=== PATIENT | male | born 1950 | race Caucasian/White ===

== ENCOUNTER 2019-10-18 21:31 | Observation (INO) | payer MEDICARE, MEDICAID, SELFPAY ==
[2019-10-18 21:33] VITALS: BP 162/128; PULSE 114; RESP 20; TEMP 36.9; O2SAT 97; BMI 33.6
--- NOTE | 2019-10-18 21:34 | ED_ITS ---
Entered by Nia Flores, acting as scribe for HPI - Abdominal Pain General: Chief Complaint: Abdominal Pain Stated Complaint: N/V/D Time Seen by Provider: 10/18/19 21:38 Source: EMS Mode of arrival: EMS Limitations: no limitations History of Present Illness: HPI narrative: 69 yo male presents with abdomen pain. pt states this started yesterday. pt has had nausea and vomiting. pt states nothing makes this better or worse. MD elicited complaint: abdominal pain Onset (ago): day(s) (yesterday ) Pain Consistency: constant Location: RLQ Severity: moderate Quality: cramping Exacerbating factors: vomiting Relieving factors: nothing Associated Symptoms: Reports nausea and vomiting; Denies chills and fever(s) Review of Systems Const: Denies: fever or chills Eyes: Denies: change in vision ENMT: Denies: throat pain or mouth pain Card: Denies: chest pain Resp: Denies: shortness of breath GI: Reports: abdominal pain, nausea and vomiting Musc: Denies: back pain or joint pain Skin/Breast: Denies: rash Neuro: Denies: headache or behavioral changes Psych: Denies: depression Endo: Denies: excessive urination Keaton/Lymph: Denies: easy bruising All/Imm: Denies: hives PFSH ED PFSH: Statuses (acute, chronic, etc) shown below reflect problem list status as previously entered and may not be historically accurate Social History Smoking and tobacco status: former smoker Physical Exam Const: COMMON NORMALS: no apparent distress and healthy appearing HENMT: COMMON NORMALS: normocephalic and external nose normal HEAD & SCALP: normocephalic NOSE: external nose normal and no nasal discharge (nasal dischage) Eye: COMMON NORMALS: PERRL PUPIL: Yes PERRL Neck/C-Spine: COMMON NORMALS: full ROM and no lymphadenopathy Chest: COMMONS NORMALS: inspection of chest normal Resp: COMMON NORMALS: normal respiratory effort and clear to auscultation bilaterally AUSCULTATION: clear to auscultation bilaterally Cardio: COMMON NORMALS: regular rate and regular rhythm RATE: regular rate RHYTHM: regular rhythm GI: COMMON NORMALS: soft to palpation; negative for non-tender (diffuse tenderness on exam) PALPATION: Yes soft Extremity: COMMON NORMALS: normal to inspection, full ROM and normal capillary refill Psych: COMMON NORMALS: mental status grossly normal and cooperative Skin: COMMON NORMALS: no rashes or lesions noted GENERAL SKIN EXAM: no rashes or lesions noted Procedures Intubation Mg Given: 20 Mg Given: 200 Course Vital Signs: Vital signs: Vital Signs Temperature 98.4 F 10/18/19 21:33 Pulse Rate 121 H 10/19/19 02:09 Respiratory Rate 20 H 10/19/19 02:09 Blood Pressure 112/82 10/19/19 02:09 Pulse Oximetry 98 10/19/19 02:09 MDM - Abdominal Pain MDM Narrative: Medical decision making narrative: Patient presents with vomiting that have slight blood in his vomitus. Patient's dehydrated well from his vomiting. Patient has no signs of major GI bleed as his hemoglobin is normal. Patient feels improved here after Zofran. I spoke to hospitalist will admit for further evaluation and IV fluids. Lab Data: Labs: Lab Results 10/18/19 10/18/19 10/19/19 Range/Units 21:50 22:38 00:00 WBC 13.6 H (4.0-10.0) 10^3/ uL RBC 6.10 H (4.1-5.3) 10^6/u L Hgb 18.8 H (11.7-16.6) g/dL Hct 55.0 H (42.0-52.0) % MCV 90.2 (80-94) fL MCH 30.8 (28.0-34.0) pg MCHC 34.2 (30.0-36.0) g/dL RDW 11.4 L (12.1-15.1) % Plt Count 426 H (130-400) 10^3/c mm MPV 8.6 (7.4-10.4) fL Neut % (Auto) 83.9 % Lymph % (Auto) 8.4 % Whitfield % (Auto) 6.0 % Eos % (Auto) 0.7 % Baso % (Auto) 0.6 % Neut # (Auto) 11.4 H (1.8-7.7) 10^3/u L Lymph # (Auto) 1.2 (0.8-4.8) 10^3/u L Whitfield # (Auto) 0.8 (0.2-0.9) 10^3/u L Eos # (Auto) 0.1 (0.0-0.8) 10^3/u L Baso # (Auto) 0.1 (0.0-0.1) 10^3/u L Nucleated RBC % (a uto) 0 % Nucleated RBCs # 0.0 /100WBC Sodium 136 (136-145) mmol/L Potassium 4.4 (3.5-5.1) mmol/L Chloride 95 L (98-107) mmol/L Carbon Dioxide 16 L (22-29) mmol/L Anion Gap 29.4 H (5-19) BUN 26 H (8-23) mg/dL Creatinine 2.3 H (0.7-1.2) mg/dL GFR Calculation 28.4 L (90-130) mL/min Glucose 117 H (74-106) mg/dL Lactate 1.9 (0.5-2.2) mmol/L Calcium 10.2 (8.8-10.2) mg/Dl Total Bilirubin 0.2 (0.15-1.2) mg/dL AST 23 (0-40) U/L ALT 14 (0-41) U/L Alkaline Phosphata se 70 (40-130) IU/L Total Protein 8.3 (6.6-8.7) g/dL Albumin 5.0 (3.5-5.2) g/dL Globulin 3.3 (1.3-4.6) g/dL Lipase 12 L (13-60) U/L Urine Color (Yellow) Urine Appearance (CLEAR) Urine pH (5-7) Ur Specific Gravit y (1.005-1.030) Urine Protein (Negative) Urine Glucose (UA) (Normal) Urine Ketones (Negative) Urine Occult Blood (Negative) Urine Nitrate (Negative) Urine Bilirubin (NEGATIVE) Urine Urobilinogen (Negative) mg/dL Ur Leukocyte Jody ase (Negative) Urine RBC (0-2) /hpf Urine WBC (0-5) /hpf Ur Squamous Epith Cells (0-5) Ur Renal Epithelia l Cell /hpf Urine Bacteria (NONE) 10/19/19 Range/Units 00:07 WBC (4.0-10.0) 10^3/ uL RBC (4.1-5.3) 10^6/u L Hgb (11.7-16.6) g/dL Hct (42.0-52.0) % MCV (80-94) fL MCH (28.0-34.0) pg MCHC (30.0-36.0) g/dL RDW (12.1-15.1) % Plt Count (130-400) 10^3/c mm MPV (7.4-10.4) fL Neut % (Auto) % Lymph % (Auto) % Whitfield % (Auto) % Eos % (Auto) % Baso % (Auto) % Neut # (Auto) (1.8-7.7) 10^3/u L Lymph # (Auto) (0.8-4.8) 10^3/u L Whitfield # (Auto) (0.2-0.9) 10^3/u L Eos # (Auto) (0.0-0.8) 10^3/u L Baso # (Auto) (0.0-0.1) 10^3/u L Nucleated RBC % (a uto) % Nucleated RBCs # /100WBC Sodium (136-145) mmol/L Potassium (3.5-5.1) mmol/L Chloride (98-107) mmol/L Carbon Dioxide (22-29) mmol/L Anion Gap (5-19) BUN (8-23) mg/dL Creatinine (0.7-1.2) mg/dL GFR Calculation (90-130) mL/min Glucose (74-106) mg/dL Lactate (0.5-2.2) mmol/L Calcium (8.8-10.2) mg/Dl Total Bilirubin (0.15-1.2) mg/dL AST (0-40) U/L ALT (0-41) U/L Alkaline Phosphata se (40-130) IU/L Total Protein (6.6-8.7) g/dL Albumin (3.5-5.2) g/dL Globulin (1.3-4.6) g/dL Lipase (13-60) U/L Urine Color Yellow (Yellow) Urine Appearance Hazy A (CLEAR) Urine pH 5 (5-7) Ur Specific Gravit y 1.020 (1.005-1.030) Urine Protein Neg (Negative) Urine Glucose (UA) Norm (Normal) Urine Ketones 1+ H (Negative) Urine Occult Blood Neg (Negative) Urine Nitrate Negative (Negative) Urine Bilirubin Neg (NEGATIVE) Urine Urobilinogen Norm (Negative) mg/dL Ur Leukocyte Jody ase Trace H (Negative) Urine RBC 0-4 H (0-2) /hpf Urine WBC 55-80 H (0-5) /hpf Ur Squamous Epith Cells 0-4 H (0-5) Ur Renal Epithelia l Cell 5 /hpf Urine Bacteria 4+ H (NONE) Imaging Data ^: CT Abd/Pel: Radiologist's impression: PROCEDURE INFORMATION: Exam: CT Abdomen And Pelvis Without Contrast Exam date and time: 10/18/2019 10:19 PM Age: 69 years old Clinical indication: Nausea and vomiting; Abdominal pain; Acute; Patient HX: Abd pain with n/v/d x 2 days TECHNIQUE: Imaging protocol: Computed tomography of the abdomen and pelvis without contrast. Total DLP: 974.24 mGy-cm Radiation optimization: All CT scans at this facility use at least one of these dose optimization techniques: automated exposure control; mA and/or kV adjustment per patient size (includes targeted exams where dose is matched to clinical indication); or iterative reconstruction. COMPARISON: CT abdomen pelvis w con* [id number] 08/23/2016 10:04 AM FINDINGS: Lungs: Calcified granuloma in the left lower lobe as before. Liver: Unremarkable liver. Gallbladder and bile ducts: No calcified stones. No ductal dilation. Pancreas: Unremarkable. No ductal dilation. Spleen: Still no splenomegaly. Adrenals: Possible interval minimal decrease in size of the 2.5 x 2.2 cm left adrenal mass containing a new small calcification and having anterior density of 5 HU and posterior density of 70 HU. Still no right adrenal mass. Kidneys and ureters: Kidneys still unremarkable. Stomach and bowel: Continued presence of probably 2 duodenal diverticula. Still no obstruction. Continued slight left colonic diverticula. Appendix: Still no appendicitis. Intraperitoneal space: Still no free air. Vasculature: Continued atherosclerosis. Still no aortic aneurysm. Lymph nodes: No change in the small calcified nodes in each side of the pelvis. No interval enlarged nodes. Bladder: No current suggestion of bladder wall thickening. No stones. Reproductive: Continued calcifications in the non-enlarged prostate. Bones/joints: Multiple healed rib fractures bilaterally and nonunion of the old right 12th rib fracture as before. Healed fracture of the left L3 transverse process and old compression fractures still present. Minimal degenerative disease of a few discs again evident. Soft tissues: Continued calcifications in the subcutaneous fat laterally in each hip region, greater on the right. CT/CT abdomen pelvis wo con [id number] IMPRESSION: 1. No acute findings. Possible interval minimal decrease in size of the heterogeneous left adrenal mass questionably representing an adenoma or myelolipoma. 2. Continued presence of probably 2 duodenal diverticula. No current suggestion of bladder wall thickening. Old bone abnormalities and other findings detailed above. Discharge Plan Discharge Patient Disposition: Admitted As Inpatient Admit Provider: Erika Anderson Clinical Impression: Vomiting, Abdominal pain, Acute dehydration Condition: Stable Interventions: ED Discharge Assessment Last Done: 10/19/19 02:22 Coding Level of Care Code ED Rubberizing Mechanic for Chg Fwd Exam Problem Focused The documentation recorded by the Mark wilson Bridget Annette, accurately reflects the service I personally performed and the decisions made by me, Jonelle Buckner MD
[2019-10-18 21:47] VITALS: BP 162/128; PULSE 115; RESP 17; O2SAT 95
[2019-10-18 21:55] VITALS: RESP 16
[2019-10-18] MEDS: ondansetron 2 mg/ML SDV 2 mL 4 MG IVP ×2 (21:55→23:52)
[2019-10-18] MEDS: morphine 4 mg/mL SDV 1 mL IVP (21:55)
[2019-10-18] MEDS: sodium chloride 0.9% 1,000 ML 999 ML IV (21:59)
[2019-10-18 22:11] LABS: Basophils # 0.1 10^3/uL (0.0-0.1); Basophils % 0.6 %; Eosinophils # 0.1 10^3/uL (0.0-0.8); Eosinophils % 0.7 %; Hemoglobin 18.8 g/dL (11.7-16.6); Lymphocytes # 1.2 10^3/uL (0.8-4.8); Lymphocytes % 8.4 %; Mean Corpuscular HGB Conc 34.2 g/dL (30.0-36.0); Mean Corpuscular Hemoglobin 30.8 pg (28.0-34.0); Mean Corpuscular Volume 90.2 fL (80-94); Mean Platelet Volume 8.6 fL (7.4-10.4); Monocytes # 0.8 10^3/uL (0.2-0.9); Neutrophils # 11.4 10^3/uL (1.8-7.7); Neutrophils % 83.9 %; Nucleated Red Blood Cells % 0 %; Platelet Count 426 10^3/cmm (130-400); Red Cell Distribution Width 11.4 % (12.1-15.1); White Blood Count 13.6 10^3/uL (4.0-10.0)
[2019-10-18 22:44] VITALS: BP 148/92; PULSE 98; RESP 19; O2SAT 95
[2019-10-18 23:13] LABS: Alanine Aminotransferase 14 U/L (0-41); Alkaline Phosphatase 70 IU/L (40-130); Anion Gap 29.4 (5-19); Aspartate Amino Transferase 23 U/L (0-40); Blood Urea Nitrogen 26 mg/dL (8-23); Calcium 10.2 mg/Dl (8.8-10.2); Carbon Dioxide 16 mmol/L (22-29); Chloride 95 mmol/L (98-107); Globulin 3.3 g/dL (1.3-4.6); Glomerular Filtration Rate 28.4 mL/min (90-130); Glucose 117 mg/dL (74-106); Lipase 12 U/L (13-60); Potassium 4.4 mmol/L (3.5-5.1); Sodium 136 mmol/L (136-145); Total Bilirubin 0.2 mg/dL (0.15-1.2); Total Protein 8.3 g/dL (6.6-8.7)
[2019-10-18 23:27] VITALS: BP 161/119; PULSE 101; RESP 20; O2SAT 96
--- NOTE | 2019-10-18 23:28 | PC.NURSE ---
patient complaining of right upper quadrant pain. patient states that this pain is a 10/10 pain. ed physician notified
--- NOTE | 2019-10-18 23:47 | PC.NURSE ---
Per office technology instructor that patient had coffee ground emesis X2 in CT. ed physician notified.
[2019-10-18 23:53] VITALS: RESP 16; O2SAT 98
[2019-10-18] MEDS: HYDROmorphone 1 mg/mL INJ 1 mL IVP (23:53)
[2019-10-19] VITALS (14 sets, daily range): BP systolic 107–169; BP diastolic 69–104; PULSE 59–121; RESP 16–22; TEMP 36.4–36.9; O2SAT 94–99
[2019-10-19] MEDS: pantoprazole 40 mg SDV 80 MG IVP (00:13)
[2019-10-19 00:27] LABS: Lactate (Lactic Acid level) 1.9 mmol/L (0.5-2.2)
[2019-10-19 00:28] LABS: Urine Appearance Hazy (CLEAR); Urine Color Yellow (Yellow); pH Urine 5 (5-7)
[2019-10-19 00:29] LABS: Add Urine Microscopic? YES; Bilirubin Urine Neg (NEGATIVE); Blood Urine Neg (Negative); Glucose Urine UA Norm (Normal); Ketones Urine 1+ (Negative); Leukocyte Esterase Urine Trace (Negative); Nitrate Urine Negative (Negative); Protein Urine Neg (Negative); Urobilinogen Urine Norm (Negative)
[2019-10-19 00:36] LABS: Add Urine Culture? Yes; Bacteria Urine 4+; RBC Urine 0-4 /hpf (0-2); Renal Epithelial Cells Urine 5 /hpf; Squamous Epithelial Cell Urine 0-4 (0-5); WBC Urine 55-80 /hpf (0-5)
[2019-10-19] MEDS: pantoprazole 40 MG in sodium chloride 0.9% (plus) 100 ML 20 MG IV (01:13)
[2019-10-19] MEDS: morphine 4 mg/mL SDV 1 mL IVP (01:33)
--- NOTE | 2019-10-19 02:25 | PM.HP ---
Providers/Chief Complaint Admitting Physician: Erika Anderson MD Chief Complaint: N/V/D History of Present Illness Jc Clark is a 69 year old male who carries diagnosis of GERD, drinks beer 6 can every day came in with chief complaint of intractable nausea vomiting. Patient is stating that his symptoms started about 1 month ago with abdominal pain and it gradually got worse to the point he started having nausea and vomiting 48 hours ago, he was not able to keep anything down, it was coffee-ground in color with first vomiting, he also noticed dark-colored stool, he has been having a lot of right upper quadrant pain as well. He has not noticed any fever, chills, constipation he is endorsing diarrhea, dark-colored stool and coffee-ground emesis. He is drinking 6 cans of beer every day, quit smoking few months ago, does not use any recreational drugs, he is using clonidine for his blood pressure and hydrocodone for his back pain. He is taking ranitidine and Zantac for GERD on daily basis. He has also noticed right leg swelling which is chronic for him, he tries to walk when he is feeling better with a cane otherwise leading a sedentary lifestyle Diagnostics in ER showed blood pressure 140, afebrile, patient had 3 coffee-ground emesis in the ER, he was FOBT positive as well, hemoglobin was 18 Protonix bolus 80 mg was given in ER Patient was awake alert oriented and pleasant to communicate Review of Systems Narrative: Abdominal pain, right upper quadrant pain, diarrhea, malaise, Right upper quadrant pain with nausea and vomiting No chest pain No shortness of breath No headache He is endorsing right leg swelling, Denying frequency, urination or dysuria Positive for diarrhea, No skin ulcers or rash Denies depression or anxiety Endorses muscle aches and joint pains Medications/Allergies Allergies Allergy/AdvReac Type Severity Reaction Status Date / Time No Known Allergies Allergy Verified 10/18/19 21:42 PFSH Acute PFSH: Statuses (acute, chronic, etc) shown below reflect problem list status as previously entered and may not be historically accurate Medical History (Updated 10/19/19 @ 03:15 by Erika Anderson MD) Alcohol abuse (Acute) BPH (benign prostatic hyperplasia) (Acute) Degenerative joint disease (Acute) GERD (gastroesophageal reflux disease) (Acute) Hepatomegaly (Acute) Metabolic encephalopathy (Acute) Tobacco abuse (Acute) Surgical History (Updated 10/19/19 @ 02:28 by Erika Anderson MD) H/O neck surgery (Acute) Family History (Updated 10/19/19 @ 02:28 by Erika Anderson MD) Denies family history of CAD (coronary artery disease) Clotting disorder Chronic kidney disease (CKD) Cancer Social History (Updated 10/19/19 @ 03:12 by Erika Anderson MD) Smoking and tobacco status: former smoker Alcohol intake: current Alcohol intake frequency: 3 or more drinks per day Alcohol type: beer Alcohol use comment: 6 cans of beer every day Desire information about alcohol rehabilitation?: No Counseling given: Yes Substance/Drug Use: never Vitals/I&O/Wt Last Vital Signs Temp 98.3 F 10/19/19 02:22 Pulse 99 10/19/19 02:22 Resp 16 10/19/19 02:22 BP 107/80 10/19/19 02:22 Pulse Ox 97 10/19/19 02:22 10/18/19 10/18/19 10/19/19 14:59 22:59 06:59 Intake Total 1000 / 1000 Balance 1000 / 1000 Weight last 48 hrs Weight 86.183 kg Physical Exam Narrative: EXAM NARRATIVE: Obese male, appears stated age, pleasant communicate In mild distress because of dry heaves and retching and abdominal pain Conjunctive are normal, EOMI, PERRLA, Abdomen, distended, tender to palpate on right upper quadrant region, Sandhu sign positive, however abdomen is soft with bowel sounds present S1-S2 no murmur appreciated no JVD no signs of peripheral edema Nonfocal neurological exam no deficit Right leg is swollen 1+ trace edema as compared to the left leg Skin has no rash or bruises Appropriate mood and affect No skin mottling Onychomycosis of toenails A&P Assessment and plan (1) Upper GI bleed: Status: Acute Code(s): K92.2 - Gastrointestinal hemorrhage, unspecified (2) Coffee ground emesis: Status: Acute Code(s): K92.0 - Hematemesis (3) Occult blood positive stool: Status: Acute Code(s): R19.5 - Other fecal abnormalities (4) Dehydration: Status: Acute Code(s): E86.0 - Dehydration (5) Acute kidney injury: Status: Acute Code(s): N17.9 - Acute kidney failure, unspecified (6) Hepatomegaly: Status: Acute Code(s): R16.0 - Hepatomegaly, not elsewhere classified (7) Degenerative joint disease: Status: Acute Code(s): M19.90 - Unspecified osteoarthritis, unspecified site Intractable nausea vomiting most likely due to alcohol induced gastroparesis Patient has history of GERD as well Coffee-ground emesis with FOBT positive stool my differentials would include gastric ulcer bleed versus Sarita-Russell tear N.p.o. Needs EGD Protonix 40 IV twice a day D5 LR at 30 cc/h Hemodynamically stable I do believe current hemoglobin is an artifact due to dehydration, will check CBC at 4 AM Acute kidney injury secondary to dehydration Baseline creatinine has been normal in the past High anion gap metabolic acidosis without alkalosis It is pure metabolic acidosis, patient endorses to rubbing alcohol on his skin He called alcohol 91 We will get serum osmolarity and check osmolar gap He drinks 6 cans of beer every day lactic acid is normal, will check serum ketones Urinary ketones positive Right lower extremity edema Will get venous Doppler to rule out DVT Patient is full code No DVT prophylaxis secondary to coffee-ground emesis SCDs Bedrest Patient lives alone at home Attestations Medical Necessity Statement*: Considering normal hemodynamics and H&H for now I will admit him as observation, evaluate for EGD in the morning anticipate discharge in less than 48 hours Coding Level of Care Code Acute Insulating Machine Operator for Chg Fwd Diagnoses Upper GI bleed K92.2 Coffee ground emesis K92.0 Occult blood positive stool R19.5 Dehydration E86.0 Acute kidney injury N17.9 Hepatomegaly R16.0 Degenerative joint disease M19.90
--- NOTE | 2019-10-19 03:06 | US_ITS ---
WS: [id number] Gallbladder ultrasound, 10/19/2019 Clinical Data: RUQ pain Comparison: Right upper quadrant ultrasound, 08/23/2016. Findings: The gallbladder shows no sludge or stone. The wall measures 1.5 mm with no pericholecystic fluid. The common bile duct is 3.2 mm and there are no intrahepatic ductal abnormalities. Liver shows no cysts, masses or dilated intrahepatic ducts. There is fatty infiltration of the liver. The pancreas is obscured by overlying bowel gas but no cyst, pseudocyst, or evidence of pancreatitis is noted. Right kidney measures 9.0 cm and no cyst, masses or hydronephrosis can be seen. The aorta and inferior vena cava show no vascular abnormalities. US/US gall bladder [id number] Impression: 1. Negative gallbladder. 2. Fatty infiltration of the liver.
--- NOTE | 2019-10-19 03:21 | USCV_ITS ---
Jc Clark Age: 69 Gender: M : 1950 Exam Date: 10/19/2019 06:28 Ordering Phys: Erika Anderson MD Technologist: Adama Chand [place] [facility] [place]: RT LEG PAIN AND EDEMA HISTORY: Lower extremity edema. Lower extremity edema. PROCEDURES: Venous duplex imaging was performed in only the right lower extremity. The following venous structures were evaluated: common femoral vein, profunda vein, proximal portion of the greater saphenous vein, superficial femoral vein, and the popliteal vein. In addition, the posterior tibial and peroneal trunk were evaluated. FINDINGS: Normal 2-D Doppler and augmentation and compressibility throughout the lower extremity venous structures. Additional imaging through the proximal calf veins also reveals no thrombus. Limited evaluation of the greater saphenous vein is patent with no thrombus.. CONCLUSIONS Negative right lower extremity bvenous Doppler ultrasound. Dr. Arianna Bowden MD (Electronically Signed) Final Date: 19 October 2019 08:39 S
--- NOTE | 2019-10-19 03:23 | PC.NURSE ---
Pain Pt. is c/o bilateral rib pain rated at a 6/10 per 0-10 scale. Physician seen patient and is placing orders. Medications to be given per orders. Pt. assisted in repositioning.
[2019-10-19] MEDS: HYDROcodone-acetaminophen 7.5-325 mg Tablet 1 TAB PO ×3 (03:48→20:43)
[2019-10-19] MEDS: dextrose 5%-lactated ringers 1,000 ML 30 ML IV (03:49)
[2019-10-19 04:07] LABS: Amphetamines Screen Urine Positive (Negative); Barbiturates Screen Urine Negative (Negative); Benzodiazepines Screen Urine Negative (Negative); Cocaine Screen Urine Negative (Negative); PCP Screen Urine Negative (Negative); THC Screen Urine Negative (Negative)
[2019-10-19 05:59] LABS: Basophils % 0.3 %; Eosinophils % 0.1 %; Hematocrit 45.9 % (42.0-52.0); Hemoglobin 14.9 g/dL (11.7-16.6); Lymphocytes # 1.2 10^3/uL (0.8-4.8); Lymphocytes % 10.2 %; Mean Corpuscular HGB Conc 32.5 g/dL (30.0-36.0); Mean Corpuscular Hemoglobin 29.8 pg (28.0-34.0); Mean Corpuscular Volume 91.8 fL (80-94); Mean Platelet Volume 8.6 fL (7.4-10.4); Monocytes # 1.2 10^3/uL (0.2-0.9); Monocytes % 10.6 %; Neutrophils % 78.5 %; Nucleated Red Blood Cells % 0 %; Platelet Count 309 10^3/cmm (130-400); Red Cell Distribution Width 11.6 % (12.1-15.1); White Blood Count 11.4 10^3/uL (4.0-10.0)
[2019-10-19 06:27] LABS: Alanine Aminotransferase 11 U/L (0-41); Albumin Level 4.7 g/dL (3.5-5.2); Alkaline Phosphatase 60 IU/L (40-130); Anion Gap 25.1 (5-19); Aspartate Amino Transferase 18 U/L (0-40); Blood Urea Nitrogen 31 mg/dL (8-23); Calcium 9.1 mg/Dl (8.8-10.2); Carbon Dioxide 15 mmol/L (22-29); Chloride 100 mmol/L (98-107); Globulin 2.6 g/dL (1.3-4.6); Glomerular Filtration Rate 20.9 mL/min (90-130); Glucose 106 mg/dL (74-106); Potassium 5.1 mmol/L (3.5-5.1); Sodium 135 mmol/L (136-145); Total Bilirubin 0.2 mg/dL (0.15-1.2); Total Protein 7.3 g/dL (6.6-8.7)
[2019-10-19 06:31] LABS: Alcohol Level < 10 mg/dL (0-10); Salicylate < 0.3 mg/dL (3-10)
[2019-10-19] MEDS: cefTRIAXone 1,000 MG in sodium chloride 0.9% (plus) 50 ML 100 MG IV (09:34)
[2019-10-19] MEDS: folic acid 1 mg Tablet PO (09:36)
[2019-10-19 11:26] LABS: Hemoglobin 14.7 g/dL (11.7-16.6)
--- NOTE | 2019-10-19 13:00 | PC.CHAP ---
Pastoral Care Encounter/Spiritual Assessment Type of Contact [x] Declined land resource specialist visit [] Patient/Family/Request visit [] Outpatient visit [] Follow-up visit [] Physician referral [] Code/Alert [] Routine visit [] Staff referral [] Actively dying [] Patient sleeping [] Family support [] [] Out of room [] Palliative care [] [] Receiving care in room [] Pre-surgical visit [] Trauma [] Long length of stay [] ICU visit [] Other: Relational/Emotional Strength [] Patient feels connected with others/family/visitors/staff [] Distress [] Loneliness/isolation [] Abandonment Spirituality of Patient [] Person of Magali [] Attends Latter-Day of their Magali [] Believes in Prayer [] Reads Bible or Denominational materials [] There are Spiritual issues to be addressed Tin Stacker Interventions [] Prayer [] Active listening [] Non-anxious presence [] Spiritual/emotional support [] Crisis/trauma care [] Spiritual counseling [] Bereavement support [] Provided bereavement packet [] Provided Bible/devotional materials [] Provided toy/stuffed animal, coloring book to patient or family member [] Completed spiritual assessment [] Provided Communion [] Anointing/Exchange [] Salvation [] Other: Impact on Illness or Injury [] Angry [] Fearful [] Anxious [] Often cries [] Exhaustion [] Unable to work [] Unable to attend mormon [] Unable to walk/stand [] Unable to read [] Unable to drive [] Unable to eat/drink [] Unable to sleep [] Unable to be with family [] Other: Summary Patient declined visit; Laura Lorenzo Time spent with patient 2-minutes
--- NOTE | 2019-10-19 16:13 | P.DS_ITS ---
Discharge Providers Date of Admission: 10/19/19 02:14 Date of Discharge: 10/19/19 Attending Provider at Admission: Erika Anderson MD Attending Provider at Discharge: Zia Tineo Diagnoses at Discharge Discharge Diagnosis (1) Upper GI bleed: Status: Acute (2) Coffee ground emesis: Status: Acute (3) Occult blood positive stool: Status: Acute (4) Dehydration: Status: Acute (5) Acute kidney injury: Status: Acute (6) Hepatomegaly: Status: Acute (7) Degenerative joint disease: Status: Acute Reason for Visit Reason for Visit: Reason For Visit: N/V/D Hospital Course Hospital Course: 69-year-old gentleman with a history of daily alcohol intake, BPH, DJD, tobacco abuse, GERD was placed in observation after presenting with 1 month duration of progressive nausea and abdominal discomfort, which is gotten worse within the last 48 hours, and have been accompanied by vomiting. He has been unable to keep down food, and noticed coffee-ground contents with the first vomiting episode, as well as dark-colored stool. He reports drinking 6 cans of beer per day. He reportedly recently quit smoking within the last few months. He was found hemoconcentrated on presentation, with hemoglobin of 18.8. He was started on IV hydration. Hemoglobin levels monitored with recheck hemoglobin of 14.9, and 14.76 hours later. He has been doing well. He has not been hypotensive. Denies any orthostatic symptoms. He was started on PPI, Zofran as needed, with resolution of vomiting. His appetite improved, he requested to be started on diet. Alcohol cessation was discussed with suspicion of alcohol induced gastritis which was explained to the patient. Alternatively upper GI bleeding may have been secondary to Sarita-Russell tear. He verbalized understanding and stated he would cut down or stop drinking alcohol. Given apparent resolution of bleeding, and feeling better, tolerating diet he was able to return home with outpatient follow-up for EGD, with continued PPI. Acute kidney injury is noted, although we do not have a recent baseline, back in 2016 his creatinine was around 1. Currently creatinine is 2.3-3, appears to be prerenal, possibly secondary to dehydration with noted hemoconcentration on presentation. His dehydration has improved, however, without improvement in creatinine with fluid challenge. May suspect chronic kidney disease, versus ATN. Please follow-up renal function in outpatient office. For now BMP is ordered within a week. UA during this admission is suspicious for UTI. He was started on Rocephin in the hospital, and is discharged with a course of ciprofloxacin. Please follow-up final urine culture. On review of prior imaging, he is noted to have left adrenal nodule, as well as urinary bladder thickening. These findings were back in 2016. He denies having follow-up imaging. He reports he was making appointment with a urologist. Please help facilitate follow-up. Once his renal function stabilizes please refer him for closer assessment of adrenal nodule, and follow-up on urinary bladder thickening. Physical Exam Const: COMMON NORMALS: no apparent distress HENMT: COMMON NORMALS: oropharynx normal Neck/C-Spine: COMMON NORMALS: no JVD Resp: COMMON NORMALS: normal respiratory effort and clear to auscultation bilaterally AUSCULTATION: clear to auscultation bilaterally Cardio: COMMON NORMALS: no JVD, regular rhythm, S1 normal heart sound, S2 normal heart sound and no murmurs RHYTHM: regular rhythm HEART SOUNDS: S1 normal and S2 normal GI: COMMON NORMALS: normal to inspection, nondistended, normoactive bowel sounds and soft to palpation PALPATION: Yes soft and Yes tender Details: other (epigastric) Extremity: COMMON NORMALS: no joint enlargement and no pedal edema Skin: COMMON NORMALS: no rashes or lesions noted GENERAL SKIN EXAM: no rashes or lesions noted Discharge Data Data Completed and Pending: Completed Studies During Hospitalization Category Date Time Status CT abdomen pelvis wo con [id number] Urge nt Cat Scan 10/18/19 21:35 [place] [id number] Routin e Ultrasound 10/19/19 03:21 Completed US gall bladder 7 [id number] Routine Ultrasound 10/19/19 03:06 Completed Pending at discharge Category Date Time Status Urine Culture Sta t Lab 10/19/19 00:07 Received Labs from last 24 hours 10/19/19 10/19/19 10/19/19 10:20 05:43 05:43 WBC 11.4 H RBC 5.00 Hgb 14.7 14.9 Hct 45.0 45.9 MCV 91.8 MCH 29.8 MCHC 32.5 RDW 11.6 L Plt Count 309 MPV 8.6 Neut % (Auto) 78.5 Lymph % (Auto) 10.2 [place] % (Auto) 10.6 Eos % (Auto) 0.1 Baso % (Auto) 0.3 Neut # (Auto) 9.0 H Lymph # (Auto) 1.2 [place] # (Auto) 1.2 H Eos # (Auto) 0.0 Baso # (Auto) 0.0 Nucleated RBC % (a uto) 0 Nucleated RBCs # 0.0 Sodium 135 L Potassium 5.1 Chloride 100 Carbon Dioxide 15 L Anion Gap 25.1 H BUN 31 H Creatinine 3.0 H GFR Calculation 20.9 L Glucose 106 Serum Osmolality 292 Lactate Calcium 9.1 Total Bilirubin 0.2 AST 18 ALT 11 Alkaline Phosphata se 60 Total Protein 7.3 Albumin 4.7 Globulin 2.6 Lipase Urine Color Urine Appearance Urine pH Ur Specific Gravit y Urine Protein Urine Glucose (UA) Urine Ketones Urine Occult Blood Urine Nitrate Urine Bilirubin Urine Urobilinogen Ur Leukocyte Jody ase Urine RBC Urine WBC Ur Squamous Epith Cells Ur Renal Epithelia l Cell Urine Bacteria Salicylates < 0.3 L Urine Opiates Scre en Ur Barbiturates Sc reen Ur Phencyclidine S crn Ur Amphetamines Sc reen U Benzodiazepines Scrn Urine Cocaine Scre en U Marijuana (THC) Screen Ethyl Alcohol < 10 10/19/19 10/19/19 10/19/19 00:07 00:07 00:00 WBC RBC Hgb Hct MCV MCH MCHC RDW Plt Count MPV Neut % (Auto) Lymph % (Auto) [place] % (Auto) Eos % (Auto) Baso % (Auto) Neut # (Auto) Lymph # (Auto) [place] # (Auto) Eos # (Auto) Baso # (Auto) Nucleated RBC % (a uto) Nucleated RBCs # Sodium Potassium Chloride Carbon Dioxide Anion Gap BUN Creatinine GFR Calculation Glucose Serum Osmolality Lactate 1.9 Calcium Total Bilirubin AST ALT Alkaline Phosphata se Total Protein Albumin Globulin Lipase Urine Color Yellow Urine Appearance Hazy A Urine pH 5 Ur Specific Gravit y 1.020 Urine Protein Neg Urine Glucose (UA) Norm Urine Ketones 1+ H Urine Occult Blood Neg Urine Nitrate Negative Urine Bilirubin Neg Urine Urobilinogen Norm Ur Leukocyte Jody ase Trace H Urine RBC 0-4 H Urine WBC 55-80 H Ur Squamous Epith Cells 0-4 H Ur Renal Epithelia l Cell 5 Urine Bacteria 4+ H Salicylates Urine Opiates Scre en Positve Ur Barbiturates Sc reen Negative Ur Phencyclidine S crn Negative Ur Amphetamines Sc reen Positive H U Benzodiazepines Scrn Negative Urine Cocaine Scre en Negative U Marijuana (THC) Screen Negative Ethyl Alcohol 10/18/19 10/18/19 22:38 21:50 WBC 13.6 H RBC 6.10 H Hgb 18.8 H Hct 55.0 H MCV 90.2 MCH 30.8 MCHC 34.2 RDW 11.4 L Plt Count 426 H MPV 8.6 Neut % (Auto) 83.9 Lymph % (Auto) 8.4 [place] % (Auto) 6.0 Eos % (Auto) 0.7 Baso % (Auto) 0.6 Neut # (Auto) 11.4 H Lymph # (Auto) 1.2 [place] # (Auto) 0.8 Eos # (Auto) 0.1 Baso # (Auto) 0.1 Nucleated RBC % (a uto) 0 Nucleated RBCs # 0.0 Sodium 136 Potassium 4.4 Chloride 95 L Carbon Dioxide 16 L Anion Gap 29.4 H BUN 26 H Creatinine 2.3 H GFR Calculation 28.4 L Glucose 117 H Serum Osmolality Lactate Calcium 10.2 Total Bilirubin 0.2 AST 23 ALT 14 Alkaline Phosphata se 70 Total Protein 8.3 Albumin 5.0 Globulin 3.3 Lipase 12 L Urine Color Urine Appearance Urine pH Ur Specific Gravit y Urine Protein Urine Glucose (UA) Urine Ketones Urine Occult Blood Urine Nitrate Urine Bilirubin Urine Urobilinogen Ur Leukocyte Jody ase Urine RBC Urine WBC Ur Squamous Epith Cells Ur Renal Epithelia l Cell Urine Bacteria Salicylates Urine Opiates Scre en Ur Barbiturates Sc reen Ur Phencyclidine S crn Ur Amphetamines Sc reen U Benzodiazepines Scrn Urine Cocaine Scre en U Marijuana (THC) Screen Ethyl Alcohol Vitals: Last Vital Signs Temp 98.0 F 10/19/19 12:00 Pulse 78 10/19/19 12:00 Resp 16 10/19/19 12:00 BP 124/84 10/19/19 12:00 Pulse Ox 97 10/19/19 12:00 Discharge Plan Discharge Patient Disposition: Home, Self-Care Condition: Stable Prescriptions: New folic acid 1 mg Tablet 1 mg PO DAILY Qty: 30 RF: 0 ondansetron HCl [Zofran] 4 mg tablet 4 mg PO Q8H PRN (Reason: nausea and vomiting) 4 Days Qty: 12 RF: 0 ciprofloxacin HCl [Cipro] 250 mg tablet 250 mg PO BID Qty: 10 RF: 0 pantoprazole 40 mg tablet,delayed release (DR/EC) 40 mg PO BID Qty: 60 RF: 0 thiamine HCl (vitamin B1) 100 mg tablet 100 mg PO DAILY Qty: 30 RF: 0 Continued Unable to Assess RF: 0 Discharge Orders: Discharge Order (Routine); Ordered 10/19/19 Ordered By: Zia Tineo Other Ambulatory Orders: Basic Metabolic Panel (Routine) Timeframe: 1 Week Facility: [facility] - Location: Lab - Main Lab Ordered By: Zia Tineo Referrals: [facility] [Provider Group] - 4-7 days (EGD) Amber Vieira, RN [Emergency Nurse] - 4-7 days Activity Restrictions/Additional Instructions: Please avoid any NSAIDs, like ibuprofen, naproxen, etc. Please avoid any alcohol due to risk of recurrence of upper gastrointestinal bleeding. Please arrange for follow-up CT or MRI of abdomen and pelvis for follow-up on left adrenal nodule, urinary bladder thickening once his renal function stabilizes enough to allow for contrast imaging. Discharge Attestations Time Spent in Discharge Care*: greater than 30 min Quality Metrics Clinical Quality Measures During this hospital stay, did patient experience: None Coding Level of Care Code Acute Legal Referee for Sabrina Fwmireya Diagnoses Upper GI bleed K92.2 Coffee ground emesis K92.0 Occult blood positive stool R19.5 Dehydration E86.0 Acute kidney injury N17.9 Hepatomegaly R16.0 Degenerative joint disease M19.90
[2019-10-19] MEDS: pantoprazole 40 mg SDV IVP (16:45)
--- NOTE | 2019-10-19 18:55 | PC.NURSE ---
Called [facility] ([phone]) and scheduled ride home. Reservation number [id number]. Transportation will be here in 1-4 hours.
--- NOTE | 2019-10-19 21:00 | PC.NURSE ---
10/19/19 at 2100. I called [facility] & spoke to Nhung regarding patient has not been picked up to be transported home yet. She said the services delivery driver didn't show up & she would send out a notification to contact a services delivery driver. She said I would receive a text/call when the ride would be here.
--- NOTE | 2019-10-19 23:43 | PC.NURSE ---
I notified [employer] for the 2nd time regarding pt still has not been picked up to be transported home. They said they have requested a Lyft ride for the patient & they would text/call when the ride was here to get the patient. Patient has been informed, patient is not happy.
[2019-10-20 04:00] VITALS: BP 167/93; PULSE 90; RESP 18; TEMP 36.4; O2SAT 97
[2019-10-20] MEDS: HYDROcodone-acetaminophen 7.5-325 mg Tablet 1 TAB PO (04:09)
[2019-10-20] MEDS: pantoprazole DR 40 mg Tablet PO (06:17)
[2019-10-20 07:46] VITALS: BP 176/80; PULSE 88; RESP 22; TEMP 36.6; O2SAT 93
--- NOTE | 2019-10-20 07:59 | PC.NURSE ---
pt discharge complete , waiting on ride through [employer]. Pt awake, alert , oriented, ambulates and voids independently. NO iv present, pt complains of no pain and is in no distress, patiently waiting in room for ride to arrive.
--- NOTE | 2019-10-20 13:40 | PM.MISC ---
Miscellaneous Note Purpose of Documentation: Delayed discharge. Note: Patient's discharge delayed on 10/19 due to lack of transportation. He left early in the morning on 10/20. I did not see the patient.
== END 2019-10-20 10:22 | disposition home or self-care (01) ==
LOC: ER 22:42 → MEDSURG 10-19 02:14
PROVIDERS: Admitting Provider Internal Medicine; Emergency Provider Emergency Medicine; Visit Provider Internal Medicine
DX: K92.2 Gastrointestinal hemorrhage, unspecified (principal); R19.5 Other fecal abnormalities; K92.0 Hematemesis; E86.0 Dehydration; N17.9 Acute kidney failure, unspecified; R16.0 Hepatomegaly, not elsewhere classified; M19.90 Unspecified osteoarthritis, unspecified site; K21.9 Gastro-esophageal reflux disease without esophagitis; E87.2 Acidosis; R60.0 Localized edema; K76.89 Other specified diseases of liver; N40.0 Benign prostatic hyperplasia without lower urinary tract symptoms; Z82.49 Family history of ischemic heart disease and other diseases of the circulatory system; Z84.1 Family history of disorders of kidney and ureter; Z87.891 Personal history of nicotine dependence
CPT/HCPCS: 36415; 74176; 76705; 80053; 80307; 81003; 83605; 83690; 83930; 85014; 85018; 85025; 87077; 87086; 87186; 93971; 96360; 96361; 96365; 96366; 96367; 96374; 96375; 96376; 99282; 99285; C9113; G0378; J0696; J1170; J2270; J2405; J3411; J7030; J7050